=== PATIENT | female | born 1990 | race African-American/Black ===

== ENCOUNTER 2021-08-05 18:18 | Emergency (ER) | payer OTHER, SELFPAY ==
[2021-08-05 18:57] VITALS: BP 129/76; PULSE 68; RESP 18; TEMP 36.8; O2SAT 100
--- NOTE | 2021-08-05 21:33 | PC.NURSE ---
Pt and family stated that they needed to leave. breast milk that pt had pumped was taken out and given back to pt. pt ambulating with steady gait upon leaving.
== END 2021-08-05 21:39 | disposition left against medical advice (07) ==
PROVIDERS: Emergency Provider Family Medicine
DX: S09.90XA Unspecified injury of head, initial encounter (principal)
CPT/HCPCS: 99199